=== PATIENT | female | born 1955 | race Caucasian/White ===

== ENCOUNTER → 2024-03-24 | Outpatient (CLI) | payer OTHER ==
--- NOTE | 2024-03-24 11:50 | HMCIMG ---
MR SPINAL CANAL, LUMBAR WO CON REASON: M54.9 Dorsalgia, unspecified COMPARISON: None TECHNIQUE: Routine lumbar imaging protocol was performed. Exam was performed without IV contrast. FINDINGS: Sagittal images show 5 mm anterior subluxation of L4 on L5. There is moderate interspace narrowing at L5-S1. Remaining interspaces appear preserved. There are no focal osseous lesions. Axial images show ligamentum flavum and facet hypertrophic changes at multiple levels, moderate in degree. L5-S1 is widely patent. There is moderate spinal stenosis at L4-5, AP diameter in the midline between 6 and 7 mm. There is mild to moderate stenosis at L3-4, AP diameter the midline between 7 and 8 mm. Remaining interspaces are widely patent. Neural foramina appear well preserved. Surrounding soft tissues appear unremarkable. IMPRESSION: 1. 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 2. Mild to moderate stenosis at L3-4 on a degenerative basis, AP diameter in the midline 7 to 8 mm. 3. Moderate interspace narrowing at L5-S1
== END | disposition home or self-care (01) ==
LOC: RAH 08:50
PROVIDERS: ATTEND Family Medicine
DX: S33.140A Subluxation of L4/L5 lumbar vertebra, initial encounter (principal); M47.816 Spondylosis without myelopathy or radiculopathy, lumbar region; M48.07 Spinal stenosis, lumbosacral region; M54.9 Dorsalgia, unspecified; X58.XXXA Exposure to other specified factors, initial encounter; Y93.89 Activity, other specified; Y92.89 Other specified places as the place of occurrence of the external cause; Y99.8 Other external cause status
CPT/HCPCS: 72148